=== PATIENT | female | born 1995 | race Caucasian/White ===

== ENCOUNTER 2017-07-11 17:42 | Emergency (ER) | payer BC, OTHER ==
[~2017-07-11] VITALS: Ht 167.6 cm; Wt 65.0 kg
[2017-07-11 17:53] VITALS: Ht 167.6 cm; Wt 65.0 kg
[2017-07-11] MEDS ORDERED: SOD CHLORIDE 0.9% 1,000 ML IV STA (18:25)
[2017-07-11] MEDS ORDERED: KETOROLAC 15 MG INJ IV STA (18:25)
[2017-07-11] MEDS ORDERED: ALPRAZOLAM 0.25 MG TAB PO ONE (18:30)
--- NOTE | 2017-07-11 19:19 | RADRPT ---
PROCEDURE: CT Head without. CLINICAL INDICATION: Headache. TECHNIQUE: The study was performed utilizing a multi-slice, multidetector CT scanner. Direct spira l 1 mm axial sections were obtained through the head without the use of intravenous contrast materia l. 1 or more of the following dose reduction techniques were utilized: Automated exposure control, adjustment of the mA and/or kV according to patient's size, iterative reconstruction technique. Co jo and sagittal reformations were obtained. The images were reviewed on a PACS workstation. RADIATION DOSE: CTDIvol: 40.3 mGyDLP: 813.0 mGy-cm COMPARISON: No prior studies are available for comparison. FINDINGS: There is no intracranial hemorrhage, extra-axial fluid collection, mass lesion, midline shift or hyd rocephalus. The ventricles, sulci and cisterns are within normal limits. The white matter is unrem arkable. The long-white matter differentiation is preserved. The basal cisterns are patent. The m idline structures are intact. The orbits, calvarium and extracranial soft tissues are normal in nkechi earance. The visualized paranasal sinuses, mastoid air cells and middle ear cavities are normally ae rated. IMPRESSION: 1. No acute intracranial abnormality. No intracranial hemorrhage, extra-axial fluid collection, ma ss lesion or hydrocephalous. RPTAT: HGAS .Mitch Marti MD, MD Date Time Electronically viewed and signed by .Mitch Marti MD, on 07/11/2017 19:19 .S/
--- NOTE | 2017-07-11 19:24 | RADRPT ---
PROCEDURE: CT CERVICAL SPINE WITHOUT CONTRAST CLINICAL INDICATION: 22-year of age, female. Pain. Trauma. TECHNIQUE: A CT of the cervical spine was performed utilizing thin section axial images from the s kull base through the thoracic inlet. Coronal and sagittal reformatted images were obtained from th e axial source images. Images were reviewed on a high-resolution PACS workstation. The CTDIvol is 17 mGy and the DLP is 357 mGy-cm. One or more of the following dose reduction techniques were used: - Automated exposure control. - Adjustment of the mA and/or kV according to patient size. - Use of iterative reconstruction technique. COMPARISON: None available. FINDINGS: Cervical spine is imaged from the skull base to T1-2. Alignment: There is a curvature convex right centered on C4-5. Negative for spondylolisthesis or sub luxation. Vertebrae and Disks: Vertebral bodies and posterior elements are intact without acute fracture. Bone mineral density appears normal. Vertebral body heights are maintained. No suspicious bone lesio ns. There is no significant degenerative change. Extra-vertebral soft tissues: Normal. Additional comment: None. IMPRESSION: Negative for evidence of acute fracture or traumatic subluxation of cervical spine. Curvature of the cervical spine convex right centered on C4-5 may be positional or due to muscle spa sm. RPTAT: HCTS Physician Ira Date Time Electronically viewed and signed by Physician Ira on 07/11/2017 19:24 CS/
--- NOTE | 2017-07-11 19:26 | RADRPT ---
PROCEDURE: XR Chest. CLINICAL INDICATION: chest pain TECHNIQUE: Single frontal view of the chest was obtained COMPARISON: None FINDINGS: The heart and mediastinum are within normal limits. The lungs are clear. There is no pleural effusion or pneumothorax. There is dextroscoliosis of the mid thoracic spine. RPTAT: AA IMPRESSION: No focal infiltrate. Scoliosis of the thoracic spine. Dedicated thoracic spine x-rays are recommended. .Nikos To MD, MD Date Time Electronically viewed and signed by .Nikos To MD, on 07/11/2017 19:25 .S/
[2017-07-11] MEDS ORDERED: NAPR-260 PO (19:35)
[2017-07-11] MEDS ORDERED: CARI350T PO (19:35)
[2017-07-11 20:29] VITALS: BP 117/63; PULSE 75; RESP 18; TEMP 98.4
--- NOTE | 2017-07-12 00:28 | ERD ---
ER Documentation Chief Complaint Chief Complaint neck pain after falling from a few steps. no neuro def. pain on palpation HPI 42-year-old young woman brought in by EMS after mechanical fall while going down the stairs with her laundry. She fell down mass complains of right shoulder pain and neck pain. She denies head injury, no loss of consciousness, no chest pain or shortness of breath. Patient denies paresis or paresthesias, no vomiting, no headache or blurry vision. Patient was placed in a rigid cervical spine collar and transported here by EMS. ROS All systems reviewed and are negative except as per history of present illness. Medications Home Meds Active Scripts Carisoprodol* (Soma*) 350 Mg Tablet, 350 MG PO TID Y for MUSCLE SPASMS, #12 TAB Prov:MAGNUS VAUGHAN MD 07/11/17 Naproxen* (Naprosyn*) 500 Mg Tablet, 500 MG PO BID Y for PAIN AND/OR INFLAMMATION, #30 TAB Prov:MAGNUS VAUGHAN MD 07/11/17 Allergies Allergies: Coded Allergies: No Known Allergy (Unverified , 07/11/17) PMhx/Soc None Medical and Surgical Hx: pt denies Medical Hx, pt denies Surgical Hx Hx Alcohol Use: No Hx Substance Use: No Hx Tobacco Use: No Smoking Status: Never smoker FmHx Family History: No diabetes Physical Exam Vitals Vital Signs Date Time Temp Pulse Resp B/P Pulse Ox O2 Delivery O2 Flow Rate FiO2 07/11/17 20:29 98.4 75 18 117/63 100 07/11/17 17:53 98.0 64 16 124/78 98 Physical Exam GENERAL: Well-developed, well-nourished, well-hydrated, anxious, afebrile HEENT: Moist mucous membranes, pink conjunctiva, no cervical spine tenderness or step-off deformities, no goiter, no jaundice or icterus, extraocular movements intact without pain. No submandibular induration, and no pharyngeal erythema NEURO: Alert and oriented 3, cranial nerves II through XII intact bilaterally, pupils equal round reactive to light, no focal deficits or facial asymmetry, sensation intact distally Strength 5/5 in upper and lower extremities bilaterally CARDIAC: Regular rate and rhythm, no murmurs rubs or gallops LUNGS: Clear bilaterally no wheezing crackles or stridor ABDOMEN: Soft nontender, no guarding, no rigidity, no rebound, no psoas sign no obturator sign. Normoactive bowel sounds SKIN: Warm and dry to touch, no abrasions, contusions, or hematomas, no lacerations, no ecchymosis, no target lesions, and without ulcers EXTREMITIES: No clubbing cyanosis or edema, calves are bilaterally symmetrical, no Homans sign, no popliteal cord sign. Distal pulses equal and bilateral PSYCH: Anxious Result Diagram: 07/11/17189907/11/171899 Results 24 hrs Laboratory Tests Test 07/11/17 19:00 White Blood Count 11.610^3/ul Red Blood Count 5.0110^6/ul Hemoglobin 14.2g/dl Hematocrit 41.9% Mean Corpuscular Volume 83.6fl Mean Corpuscular Hemoglobin 28.3pg Mean Corpuscular Hemoglobin Concent 33.9g/dl Red Cell Distribution Width 12.8% Platelet Count 68086^3/UL Mean Platelet Volume 10.1fl Neutrophils % 78.4% Lymphocytes % 13.0% Monocytes % 7.2% Eosinophils % 0.7% Basophils % 0.4% Nucleated Red Blood Cells % 0.0/100WBC Neutrophils # 9.110^3/ul Lymphocytes # 1.510^3/ul Monocytes # 0.810^3/ul Eosinophils # 0.110^3/ul Basophils # 0.110^3/ul Nucleated Red Blood Cells # 0.010^3/ul Sodium Level 143mmol/L Potassium Level 3.6mmol/L Chloride Level 106mmol/L Carbon Dioxide Level 24mmol/L Anion Gap 17 Blood Urea Nitrogen 14mg/dl Creatinine 0.79mg/dl Glucose Level 86mg/dl Calcium Level 9.3mg/dl Serum HCG, Qualitative NEGATIVE Current Medications Medications (Trade) Dose Ordered Sig/Mark Route PRN Reason Start Time Stop Time Status Last Admin Dose Admin Sodium Chloride (NS) 1,000 ml @ 1,000 mls/hr Q1H STAT IV 07/11/17 18:25 07/11/17 19:24 DC 07/11/17 18:43 Ketorolac Tromethamine (Toradol) 15 mg ONCE STAT IV 07/11/17 18:25 07/11/17 18:28 DC Alprazolam (Xanax) 0.5 mg ONCE ONCE PO 07/11/17 18:30 07/11/17 18:31 DC 07/11/17 18:43 Procedures/MDM IV line was established patient was placed on cardiac catheterization technician rhythm strip revealed a sinus rhythm at about 80 bpm with upright P and T waves. Patient was afebrile I administered 1 L of normal saline intravenously, Toradol 15 mg IV 1, alprazolam 0.5 mg p.o. 1 Chest X-ray 1V Interpreted by me: Soft Tissue: No acute abnormalities Bones: No acute abnormalities Mediastinum/Cardiac Silhouette/Lungs: No acute abnormalities CT scan of the brain was negative for acute bleed mass or shift. CBC and electrolytes were normal, test negative CT scan of the cervical spine was negative for acute fracture dislocation. Cervical spine collar was removed and patient had full active and passive range of motion of the head and neck without difficulty. There was no gross deformity at the posterior cervical spine. Patient also suffered a left thumb sprain but has no ecchymosis, contusion, hematoma, or abrasion noted to the left hand or thumb. She has no snuffbox tenderness to touch, and states sensation to the median, ulnar, radial nerves are intact and equal bilaterally. I suspect hyperextension injury of the left thumb when she fell. Differential diagnoses considered, included but not limited to acute coronary syndrome, pulmonary embolism, aortic dissection, abdominal aortic aneurysm, sepsis, stroke, meningitis, encephalitis, pneumonia, appendicitis, cholecystitis , bowel obstruction, pyelonephritis, nephrolithiasis, cystitis, as well as metabolic, hematologic, and electrolyte abnormalities. As well as abscess, cellulitis, fractures, and dislocations. Patient feels much better at this time, and vital signs are normal, symptoms have improved. I did give strict instructions to return to the ED if symptoms continue or worsen, patient will otherwise follow-up with primary care physician. Patient understood instructions and agreed to plan. Disclaimer: Inadvertent spelling and grammatical errors are likely due to EHR/ dictation software use and do not reflect on the overall quality of patient care. Also, please note that the electronic time recorded on this note does not necessarily reflect the actual time of the patient encounter. Departure Diagnosis: Primary Impression: Shoulder strain Encounter type: initial encounter Laterality: right Qualified Code: S46.911A - Strain of right shoulder, initial encounter Additional Impressions: Neck sprain Encounter type: initial encounter Qualified Code: S13.9XXA - Neck sprain, initial encounter Left thumb sprain Encounter type: initial encounter Sprain of finger site: interphalangeal joint Qualified Code: S63.622A - Sprain of interphalangeal joint of left thumb , initial encounter Condition: Good Patient Instructions: Neck Sprain/Strain, Shoulder Sprain MAGNSU VAUGHAN MD Jul 12, 2017 00:28
== END 2017-07-11 20:30 | disposition home or self-care (01) ==
LOC: E/R 17:42
DX: S46.911A Strain of unspecified muscle, fascia and tendon at shoulder and upper arm level, right arm, initial encounter (principal); S13.9XXA Sprain of joints and ligaments of unspecified parts of neck, initial encounter; S63.622A Sprain of interphalangeal joint of left thumb, initial encounter; R07.9 Chest pain, unspecified; R93.0 Abnormal findings on diagnostic imaging of skull and head, not elsewhere classified; W10.9XXA Fall (on) (from) unspecified stairs and steps, initial encounter; Y92.9 Unspecified place or not applicable
CPT/HCPCS: 36415; 70450; 71010; 72125; 80048; 84703; 85025; 99285; J7030; Z7610; J1885